=== PATIENT | female | born 1945 | race Caucasian/White ===

== ENCOUNTER 2019-03-31 09:26 | Emergency (ER) | payer OTHER ==
[~2019-03-31] VITALS: Ht 170.2 cm; Wt 86.2 kg
[2019-03-31] MEDS ORDERED: GLUMETZA1000 MG (09:32)
[2019-03-31] MEDS ORDERED: SIMVASTATIN10 MG (09:34)
[2019-03-31] MEDS ORDERED: TENORMIN25 MG (09:34)
[2019-03-31] MEDS ORDERED: HUMALOG100 UNIT/1 (09:38)
[2019-03-31] MEDS ORDERED: LEVOTHYROXINE25 MCG (09:41)
== END 2019-03-31 14:38 | disposition home or self-care (01) ==
LOC: ER 09:26
DX: J32.8 Other chronic sinusitis (principal); R42 Dizziness and giddiness